=== PATIENT | male | born 1995 | race Caucasian/White ===

== ENCOUNTER 2019-05-18 21:42 | Emergency (ER) | payer OTHER ==
[2019-05-18 21:53] VITALS: BP 132/65; PULSE 76; RESP 18; TEMP 98.2
--- NOTE | 2019-05-18 22:24 | ED ---
Upper Extremity HPI - General Chief Complaint: Extremity Injury, Upper Stated Complaint: Shoulder pain Time Seen by Provider: 05/18/19 21:54 Source: patient, family Mode of arrival: ambulatory Limitations: no limitations - History of Present Illness Initial Comments: 's patient is a 23-year-old man who presents to be evaluated for left shoulder injury. 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 He states that for approximately the past week or so he is having pain with certain movements of his left arm/shoulder. He states the pain acts up when he extends his left arm or when he rotates internally. The patient denies weakness or numbness of the arm. He did not have any impact is no chest or neck symptoms. MD Complaint: Injury to:: left, shoulder Other Extremity Injury: Shoulder: Left Other Injuries: none Handedness: right Place: work Improves With: rest Worsens With: movement of extremity Context: other Associated Symptoms: denies other symptoms - Related Data Home Medications Medication Instructions Recorded Confirmed Ibuprofen [Motrin Ib] 200 mg PO Q6H PRN 05/18/19 05/18/19 Previous Rx's Medication Instructions Recorded Ibuprofen [Motrin] 600 mg PO Q8HR PRN #20 tab 05/18/19 Allergies Allergy/AdvReac Type Severity Reaction Status Date / Time No Known Allergies Allergy Verified 05/18/19 22:32 Review of Systems ROS Statement: Those systems with pertinent positive or pertinent negative responses have been documented in the HPI. ROS Other: All systems not noted in ROS Statement are negative. Constitutional: Denies: fever, weakness Respiratory: Denies: cough, dyspnea Cardiovascular: Denies: chest pain, palpitations Gastrointestinal: Denies: nausea, vomiting Skin: Denies: rash Neurological: Denies: headache, weakness, numbness, paresthesias Past Medical History Past Medical History: No Reported History History of Any Multi-Drug Resistant Organisms: None Reported Past Surgical History: No Surgical Hx Reported Past Psychological History: No Psychological Hx Reported Smoking Status: Current every day smoker Past Alcohol Use History: Occasional Past Drug Use History: None Reported General Exam Limitations: no limitations General appearance: alert, in no apparent distress Head exam: Present: atraumatic, normocephalic Neck exam: Present: normal inspection, full ROM. Absent: tenderness, meningismus Respiratory exam: Present: normal lung sounds bilaterally. Absent: respiratory distress, wheezes, rales, rhonchi, stridor Cardiovascular Exam: Present: regular rate, normal rhythm, normal heart sounds, other (Pulses normal throughout the left upper extremity) Left General: Present: normal inspection Shoulder Exam: Present: other (There is a positive Jobes test to the left shoulder. There is also some pain with extension against resistance.). Absent: tenderness, swelling, abrasion, laceration, ecchymosis, deformity, crepitus, dislocation, erythema, tenderness over AC joint Upper Arm exam: Present: normal inspection, full ROM. Absent: tenderness, swelling, abrasion, laceration, ecchymosis, deformity Elbow exam: Present: normal inspection, full ROM. Absent: tenderness, swelling Forearm Wrist exam: Present: normal inspection, full ROM. Absent: tenderness, swelling Hand Wrist exam: Present: normal inspection, full ROM. Absent: tenderness, swelling Neuro motor exam: Present: wrist extension intact, thumb opposition intact Neurosensory exam: Present: radial nerve intact, ulnar nerve intact, median nerve intact Vascular: Present: normal capillary refill, radial pulse (Normal) Neurological exam: Present: alert. Absent: motor sensory deficit Skin exam: Present: warm, dry, intact, normal color. Absent: rash Course Vital Signs 05/18/19 21:48 Temperature 98.2 F Pulse Rate 76 Respiratory 18 Rate Blood Pressure 132/65 O2 Sat by Pulse 99 Oximetry Medical Decision Making - Medical Decision Making This is a 23-year-old man who presents with history and physical exam findings strongly suggestive of impingement in the left shoulder. Possibility of rotator cuff also discussed with patient. Will start with conservative therapy and follow-up to ensure that there is improvement, discussed possibility of needing either orthopedic follow-up for MRI if there is no improvement. Disposition Clinical Impression: Impingement syndrome, shoulder, left Disposition: HOME SELF-CARE Condition: Good Instructions (If sedation given, give patient instructions): Rotator Cuff Injury (ED) Prescriptions: Ibuprofen [Motrin] 600 mg PO Q8HR PRN #20 tab PRN Reason: Pain Is patient prescribed a controlled substance at d/c from ED?: No Referrals: None,Stated [Primary Care Provider] - 1-2 days Glenn Pickering MD [STAFF PHYSICIAN] - 1-2 days
== END 2019-05-18 22:39 | disposition home or self-care (01) ==
LOC: EC 21:42
DX: M75.42 Impingement syndrome of left shoulder (principal); F17.200 Nicotine dependence, unspecified, uncomplicated
CPT/HCPCS: 99283